=== PATIENT | male | born 1990 | race American Indian/Alaskan Native ===

== ENCOUNTER 2016-10-31 15:33 | Emergency (ER) | payer SELFPAY ==
[2016-10-31 15:46] VITALS: BP 110/81
[2016-10-31 16:08] LABS: Basophils % (Auto) 0.4 % (0.0-1.8); Eosinophils % (Auto) 0.1 % (0.0-4.3); Hematocrit 49.5 % (35.5-45.6); Hemoglobin 16.4 gm/dl (11.8-15.2); Mean Corpuscular HGB Conc 33 % (32-34); Mean Corpuscular Hemoglobin 26 pg (28-32); Mean Corpuscular Volume 80 fl (84-94); Platelet Count 252 K/mm3 (140-440); Red Blood Count 6.21 M/mm3 (3.65-5.03); Red Cell Distribution Width 13.9 % (13.2-15.2); White Blood Count 6.8 K/mm3 (4.5-11.0)
[2016-10-31 16:24] LABS: Anion Gap 21 mmol/L; BUN/Creatinine Ratio 11.81; Blood Urea Nitrogen 13 mg/dL (9-20); Calcium 9.9 mg/dL (8.4-10.2); Carbon Dioxide 23 mmol/L (22-30); Chloride 98.2 mmol/L (98-107); Glucose 89 mg/dL (75-100); Potassium 3.8 mmol/L (3.6-5.0); Sodium 138 mmol/L (137-145)
[2016-10-31 19:05] LABS: Bilirubin,Urine Negative (Negative)
[2016-10-31 19:06] LABS: Blood,Urine Negative (Negative); Ketones,Urine Trace mg/dL (Negative); Leukocyte Esterase,Urine Negative (Negative); Nitrite,Urine Negative (Negative); Urobilinogen,Urine < 2.0 mg/dL (<2.0)
[2016-10-31 19:10] LABS: Mucus,Urine 2+ /HPF
--- NOTE | 2016-11-02 01:19 | ED Elopement Review ---
ED Pt Elopement review - Results review Lab results: Laboratory Tests 10/31/16 10/31/16 10/31/16 15:53 15:53 18:30 WBC 6.8 RBC 6.21 H Hgb 16.4 H Hct 49.5 H MCV 80 L MCH 26 L MCHC 33 RDW 13.9 Plt Count 252 Lymph % (Auto) 16.2 Stewart % (Auto) 6.9 Eos % (Auto) 0.1 Baso % (Auto) 0.4 Lymph # 1.1 L Stewart # 0.5 Eos # 0.0 Baso # 0.0 Seg Neutrophils % 76.4 H Seg Neutrophils # 5.2 Sodium 138 Potassium 3.8 Chloride 98.2 Carbon Dioxide 23 Anion Gap 21 BUN 13 Creatinine 1.1 Estimated GFR > 60 BUN/Creatinine Ratio 11.81 Glucose 89 Calcium 9.9 Urine Color Yellow Urine Turbidity Hazy Urine pH 5.0 Ur Specific [place] 1.030 Urine Protein 30 mg/dl Urine Glucose (UA) Negative Urine Ketones Trace Urine Blood Negative Urine Nitrite Negative Urine Bilirubin Negative Urine Urobilinogen < 2.0 Ur Leukocyte Esterase Negative Urine WBC (Auto) 20.0 H Urine RBC (Auto) 0.0 Urine Mucus 2+ - Call Back decision Pt Call Back Decision: No action required
== END 2016-11-01 00:25 | disposition left against medical advice (07) ==
LOC: ED 15:33
DX: R51 Headache (principal); R11.10 Vomiting, unspecified; M54.5 Low back pain; Z53.21 Procedure and treatment not carried out due to patient leaving prior to being seen by health care provider
CPT/HCPCS: 36415; 80048; 81001; 85025

== ENCOUNTER 2019-02-04 11:13 | Emergency (ER) | payer OTHER ==
[2019-02-04 11:42] VITALS: BP 144/80
--- NOTE | 2019-02-04 13:23 | Emergency Department Report ---
Abscess Boil HPI - HPI Chief Complaint: Skin/Abscess/Foreign Body Stated Complaint: POSS SPIDER BITE Time Seen by Provider: 02/04/19 11:51 Duration: 4 Days Location: Upper Extremity (right) Severity: Mild History: Yes Pain, Yes Purulent Drainage, Yes Insect Bite, No Fever, No Numbness, No Foreign Body, No Previous History HPI: This is a 28-year-old -[place] male who presents to the emergency room with a painful abscess to right posterior forearm for 3-4 days. Patient states he thinks he got bit by a spider. He notices redness and swelling increasing in the past 2 days. Reports drainage started yesterday and continues. He denies numbness or tingling, weakness, fever, chills, or paresthesias. Home Medications: Previous Rx's Medication Instructions Recorded Last Taken Type Ibuprofen [Motrin 800 MG tab] 800 mg PO Q8HR PRN #30 tablet 02/04/19 Unknown Rx Sulfamethoxazole/Trimethoprim 1 each PO BID #20 tablet 02/04/19 Unknown Rx [Bactrim DS TAB] Allergies/Adverse Reactions: Allergies Allergy/AdvReac Type Severity Reaction Status Date / Time No Known Allergies Allergy Unverified 10/31/16 15:40 ED Review of Systems ROS: Stated complaint: POSS SPIDER BITE Other details as noted in HPI Constitutional: denies: chills, fever Respiratory: denies: cough, shortness of breath, wheezing Cardiovascular: denies: chest pain, palpitations Gastrointestinal: denies: abdominal pain, nausea, diarrhea Skin: lesions (abscess of right posterior forearm). denies: rash Neurological: denies: headache, weakness, paresthesias Psychiatric: denies: anxiety, depression ED Past Medical Hx - Past Medical History Previous Medical History?: Yes Hx Asthma: Yes Additional medical history: bacterial meningitis as a child - Surgical History Past Surgical History?: No Additional Surgical History: dental - Social History Smoking Status: Never Smoker Substance Use Type: None - Medications Home Medications: Home Medications Medication Instructions Recorded Confirmed Last Taken Type Ibuprofen [Motrin 800 MG tab] 800 mg PO Q8HR PRN #30 tablet 02/04/19 Unknown Rx Sulfamethoxazole/Trimethoprim 1 each PO BID #20 tablet 02/04/19 Unknown Rx [Bactrim DS TAB] ED Abscess Boil Physical Exam - Exam General: Vital signs noted. No distress. Alert and acting appropriately. Front/Back of Body, Lg (Color): 1 - 1 cm erythematous nodule right posterior proximal ulnar and radial, tenderness, nonfluctuant, purulent drainage, FROM, brisk capillary refill, 2+ radial pulse Size: 1 cm Exam: Yes Tenderness, Yes Surrounding Cellulites/Erythema, Yes Normal Neurologic Exam, Yes Normal Circulation, No Fluctuance, No Lymphangitis, No Crepitation, No Heart Murmur ED Course Vital Signs 02/04/19 11:38 Temperature 98.5 F Pulse Rate 81 Respiratory 16 Rate Blood Pressure 144/80 [Right] O2 Sat by Pulse 96 Oximetry Critical care attestation.: If time is entered above; I have spent that time in minutes in the direct care of this critically ill patient, excluding procedure time. ED Medical Decision Making - Medical Decision Making Patient is stable and examined by me. Physical assessment of 1 cm nonfluctuant nodule to right posterior forearm. No acute signs of distress noted. Abscess is actively draining. I&D not indicated at this time. There is erythema surrounding site which appeared to be cellulitis. Discussed plan to start bactrim DS and ibuprofen with patient. Educated patient on Wound care and follow up plan for wound reassessed in 2-3 days. Patient agrees to ED plan of care. Discharged home and follow up with PCP in 2-3 days. ED Disposition Clinical Impression: Abscess of forearm, right Spider bite wound Qualifiers: Encounter type: initial encounter Injury intent: accidental or unintentional Qualified Code(s): T63.301A - Toxic effect of unspecified spider venom, accidental (unintentional), initial encounter Cellulitis Qualifiers: Site of cellulitis: extremity Site of cellulitis of extremity: upper extremity Laterality: right Qualified Code(s): L03.113 - Cellulitis of right upper limb Disposition: TO HOME OR SELFCARE Is pt being admited?: No Condition: Stable Instructions: Abscess (ED), Acute Wound Care (ED), Cellulitis (ED) Additional Instructions: Complete full round of bactrim DS antibiotic as prescribed. Follow up with PCP or ER in 2-3 days. Return to ER if foul smelling discharge, swelling, or severe pain to wound. Prescriptions: Sulfamethoxazole/Trimethoprim [Bactrim DS TAB] 1 each PO BID #20 tablet Ibuprofen [Motrin 800 MG tab] 800 mg PO Q8HR PRN #30 tablet PRN Reason: Pain , Severe (7-10) Referrals: [facility] [Outside] - 3-5 Days [facility] [Outside] - 3-5 Days [facility] [Outside] - 3-5 Days Forms: Work/School Release Form(ED) Time of Disposition: 13:26
== END 2019-02-04 13:40 | disposition home or self-care (01) ==
LOC: ED 11:13
DX: L02.413 Cutaneous abscess of right upper limb (principal); L03.113 Cellulitis of right upper limb; J45.909 Unspecified asthma, uncomplicated; Z79.899 Other long term (current) drug therapy; W57.XXXA Bitten or stung by nonvenomous insect and other nonvenomous arthropods, initial encounter; Y93.89 Activity, other specified; Y92.89 Other specified places as the place of occurrence of the external cause; Y99.8 Other external cause status